=== PATIENT | female | born 1960 | race Caucasian/White ===

== ENCOUNTER 2024-10-27 14:38 | Outpatient (CLI) | payer MEDICAID, SELFPAY ==
--- NOTE | 2024-10-27 14:39 | MM_ITS ---
WS: [id number] BILATERAL 3D TOMOSYNTHESIS DIGITAL SCREENING MAMMOGRAPHY WITH CAD CLINICAL INFORMATION: SCREENING HISTORY: Screening mammogram. No current complaints. COMPARISON: None. TECHNIQUE: Bilateral CC and MLO views. FINDINGS: Scattered fibroglandular densities bilaterally. No suspicious focal mass, asymmetry, calcifications, or architectural distortion. No evidence of malignancy. MM/MM scr BI tomosynthesis 63001 IMPRESSION: DENSITY: The breasts are almost entirely fatty. BI-RADS: 1 - Negative. FOLLOW UP: 1 Year Follow-up Recommend return to annual screening mammography.
== END 2024-10-27 14:39 | disposition home or self-care (01) ==
PROVIDERS: PCP Family Medicine; Visit Provider Family Medicine
DX: Z12.31 Encounter for screening mammogram for malignant neoplasm of breast (principal); R92.323 Mammographic fibroglandular density, bilateral breasts; R92.313 Mammographic fatty tissue density, bilateral breasts
CPT/HCPCS: 77063; 77067

== ENCOUNTER 2024-11-16 13:02 | Outpatient (CLI) | payer OTHER, MEDICAID, SELFPAY ==
--- NOTE | 2024-11-16 13:04 | USR_ITS ---
PROCEDURE INFORMATION: Exam: US Duplex Bilateral Lower Extremity Arteries Exam date and time: 11/16/2024 1:25 PM Age: 64 years old Clinical indication: Condition or disease; Peripheral vascular disease; Additional info: Peripheral vascular dz TECHNIQUE: Imaging protocol: Real-time ultrasound scan of the arteries of the bilateral lower extremities with 2-D betts scale, color Doppler flow and spectral waveform analysis. Images documented and saved. COMPARISON: No relevant prior studies available. FINDINGS: Right common femoral artery: No occlusion or significant stenosis. Normal waveform. Right superficial femoral artery: No occlusion or significant stenosis. Normal waveform. Right popliteal artery: No occlusion or significant stenosis. Normal waveform. Right calf/foot arteries: No occlusion or significant stenosis in the visualized arteries. Normal waveforms. Dorsalis pedis artery is patent. Left common femoral artery: No occlusion or significant stenosis. Normal waveform. Left superficial femoral artery: No occlusion or significant stenosis. Normal waveform. Left popliteal artery: No occlusion or significant stenosis. Normal waveform. Left calf/foot arteries: No occlusion or significant stenosis in the visualized arteries. Normal waveforms. Dorsalis pedis artery is patent. Right ALEJANDRA equals 1.1. Left ALEJANDRA equals 1.1. US/CV arterial duplex [facility] [id number] IMPRESSION: No stenosis or occlusion.
== END 2024-11-16 13:03 | disposition home or self-care (01) ==
LOC: RAD 13:03
PROVIDERS: PCP Family Medicine; Visit Provider Family Medicine
DX: I73.9 Peripheral vascular disease, unspecified (principal)
CPT/HCPCS: 93925

== ENCOUNTER 2024-11-30 07:30 | Day surgery (SDC) | payer OTHER, MEDICAID, SELFPAY ==
[2024-11-30 07:46] VITALS: BP 188/109; PULSE 77; RESP 16; TEMP 36.4; O2SAT 96; BMI 40.7
--- NOTE | 2024-11-30 08:02 | ANES.PREANE2 ---
Pre-Anesthetic Assessment Height/Weight: Height 5 ft 3 in Weight 230 lb Temp Pulse Resp BP Pulse Ox O2 Del Method 97.5 F L 77 16 188/109 96 Room Air 11/30/24 07:46 11/30/24 07:46 11/30/24 07:46 11/30/24 07:46 11/30/24 07:46 11/30/24 07:46 Preop Diagnosis: Screening colonoscopy/EGD Operation Date: 11/30/24 09:00 Proposed Procedures p Colonoscopy 89666 G0102 Z12.11(Not Applicable) - Chadd Bojorquez MD Was Beta Ok taken within 24 hours: N/A Was Clonidine taken within 24 hours: N/A Last intake: Intake Last Liquid Date 11/29/24 Last Liquid Time 20:30 Last Solid Date 11/28/24 Last Solid Time 17:30 Social Tobacco and No alcohol Exam alert, oriented x 3, clear to auscultation bilaterally and regular rate & rhythm Airway Submandibular: within normal limits Cervical ROM: within normal limits Mallampati: Class III Dentition: false Comments: Comments: Patient appears to have thrush looking plaque on tongue Anesthetic Plan ASA status: 3 Anesthesia: MAC Other: No prior issues with anesthesia Completed bowel prep History of hypertension on lisinopril. Preop BP 188/109 Hypothyroidism on Synthroid Current smoker Patient states that she can perform ADLs BMI 40.7 Plan for MAC anesthetic Medications/Allergies Home Medications ?Medication ?Instructions ?Recorded ?Confirmed ?Last Taken ?Type levothyroxine 175 mcg tablet 175 mcg PO QDAY 10/25/24 11/27/24 11/27/24 History lisinopril 5 mg tablet 5 mg PO QDAY 10/25/24 11/27/24 11/27/24 History ropinirole 2 mg tablet 2 mg PO DAILY 10/25/24 11/27/24 11/27/24 History atorvastatin 40 mg tablet 40 mg PO DAILY 11/27/24 11/27/24 11/27/24 History Allergies Allergy/AdvReac Type Severity Reaction Status Date / Time No Known Allergies Allergy Unverified 10/25/24 14:31 [facility] Anesthesia Family History (Updated 10/25/24 @ 14:33 by LINDY Riley) Mother Cancer lung Father Heart attack Social History (Updated 10/25/24 @ 14:33 by Hserrell Harrill, [place]) Smoking and tobacco/nicotine status: current every day tobacco/nicotine user cigarettes Alcohol intake: current Alcohol intake frequency: holidays/special occasions only Data Anesthesia Cardiac Studies: No Data to Display
[2024-11-30] MEDS: sodium chloride 0.9% 500 ML 15 ML IV (08:06)
--- NOTE | 2024-11-30 08:24 | W.PM.OPSFHP ---
Same Day Surgery H&P Indication for Procedure/HPI DATE OF PROCEDURE: November 30, 2024 CHIEF COMPLAINT/INDICATIONFOR SURGICAL PROCEDURE: need for screening colonoscopy PREOP DIAGNOSIS: Screening colonoscopy PLANNED PROCEDURE: Operation Date: 11/30/24 09:00 Proposed Procedures p Colonoscopy 56457 G0102 Z12.11(Not Applicable) - Chadd Bojorquez MD Medications/Allergies* Home Medications ?Medication ?Instructions ?Recorded ?Confirmed ?Type levothyroxine 175 mcg tablet 175 mcg PO QDAY 10/25/24 11/30/24 History lisinopril 5 mg tablet 5 mg PO QDAY 10/25/24 11/27/24 History ropinirole 2 mg tablet 2 mg PO DAILY 10/25/24 11/27/24 History atorvastatin 40 mg tablet 40 mg PO DAILY 11/27/24 11/30/24 History Allergies/Adverse Reactions Allergy/AdvReac Type Severity Reaction Status Date / Time No Known Allergies Allergy Unverified 11/30/24 08:09 Current Medications: Generic Name Dose Route Start Last Admin Trade Name Freq PRN Reason Stop Dose Admin Sodium Chloride 500 mls @ 15 mls/hr 11/30/24 07:33 11/30/24 08:06 Sodium Chloride 0.9% IV 12/01/24 07:32 15 mls/hr .Q24H PRN Administration COLONOSCOPY FLUIDS Pertinent History/Comorbid Conditions* Family History (Updated 10/25/24 @ 14:33 by LINDY Riley) Heart attack Father Cancer Mother lung Social History Smoking and tobacco/nicotine status: current every day tobacco/nicotine user cigarettes Alcohol intake: current Alcohol intake frequency: holidays/special occasions only Pertinent Exam Findings alert, oriented x 3, clear to auscultation bilaterally and regular rate & rhythm Recommendations Surgery/Procedure today Coding Level of Care Code Acute Code for Chg Fwd
[2024-11-30 09:40] VITALS: BP 130/94; PULSE 76; RESP 18; TEMP 36.2; O2SAT 95
--- NOTE | 2024-11-30 09:50 | ANE.PACU2 ---
Inpatient post-anesthesia follow up: Airway intact: Yes Vital signs: Temperature 97.2 F Pulse Rate 70 Respiratory Rate 18 Blood Pressure 133/89 Pulse Oximetry 96 Oxygen Delivery Me thod Room Air Oxygen Flow Rate Fraction of Inspir ed Oxygen Hydration adequate: Yes Nausea and vomiting: No Pain level: 1 Mental status: Baseline
[2024-11-30 09:53] VITALS: BP 133/89; PULSE 70; RESP 18; O2SAT 96
== END 2024-11-30 10:25 | disposition home or self-care (01) ==
PROVIDERS: PCP Family Medicine; Visit Provider Surgery
PROC: 0DJD8ZZ Inspection of Lower Intestinal Tract, Via Natural or Artificial Opening Endoscopic (ICD-10-PCS; CPT 45378; principal; 2024-11-30 09:00)
DX: Z12.11 Encounter for screening for malignant neoplasm of colon (principal); K62.1 Rectal polyp; I10 Essential (primary) hypertension; Z79.899 Other long term (current) drug therapy; E03.9 Hypothyroidism, unspecified; Z79.890 Hormone replacement therapy; F17.210 Nicotine dependence, cigarettes, uncomplicated
CPT/HCPCS: 45380; 88305; J2704; J7040